=== PATIENT | female | born 1945 | race Caucasian/White ===

== ENCOUNTER 2024-10-28 19:01 | Emergency (ER) | payer MEDICARE, OTHER, SELFPAY ==
[2024-10-28 19:08] VITALS: BP 172/99
--- NOTE | 2024-10-28 19:10 | ED.GENMED ---
History of Present Illness
General
Chief Complaint: Allergic Reaction
Time Seen by Provider: 10/28/24 19:03
History of Present Illness
History of Present Illness:
79-year-old female with history of hypertension presents the emergency department for evaluation of tongue swelling and diffuse urticarial lesions beginning just prior to arrival. She denies any history of anaphylaxis, notes that she had eaten some
nuts just prior to this but had eaten nuts previously without any issues. She denies any dyspnea but does have some degree of dysphagia. Of note she is on ramipril and has been so for many years
Past History
Past History
ED Past Medical History: HTN
ED Past Surgical History: Bowel resection (Sigmoid colon resection)
Social History
Tobacco: Non-smoker
Alcohol: Daily ([place] 2 glasses)
Drug: None
Personal:
Living: with family
Review of Systems
Review of Systems
Allergies reviewed?: Yes
All Other Systems: ROS reviewed and negative except as documented in HPI and ROS
Phy Exam
Physical Exam
Physical Exam:
GEN: Well appearing, NAD, WDWN
HEENT: Moderate swelling periorbital, massive tongue edema, unable to visualize oropharynx, no stridor
Cardiac: Regular rate
Lung: No respiratory distress, no tachypnea, lungs clear to auscultation bilaterally
MSK: No gross deformity or injuries
Skin: Good color, no pallor or jaundice, diffuse urticaria
Neuro: AO x3, moves all extremities freely
Psych: Calm, cooperative
Course
Orders/Labs/Results
Orders:
Orders
10/28/24 19:08
Diphenhydramine [Benadryl] 25 mg IV NOW STA
EPINEPHrine PF [Adrenalin] 0.3 mg IM NOW STA
Famotidine [Pepcid] 20 mg IV NOW STA
MethylPREDNISolone PF [Solu-Medrol Pf] 60 mg IV NOW STA
10/28/24 19:33
EPINEPHrine PF [Adrenalin] 0.3 mg IM NOW STA
Vital Signs
Initial and Last Documented VS:
Initial Vital Signs
Temp Pulse Resp BP Pulse Ox
98.1 F 87 20 172/99 98
10/28/24 19:08 10/28/24 19:08 10/28/24 19:08 10/28/24 19:08 10/28/24 19:08
Last Documented Vital Signs
Temp Pulse Resp BP Pulse Ox
98.1 F 65 16 112/76 99
10/28/24 19:08 10/28/24 22:49 10/28/24 22:49 10/28/24 22:49 10/28/24 22:49
MDM/Problems Addressed
MDM/Problems Addressed:
Patient was treated with epinephrine, antihistamines, and corticosteroids with dramatic improvement in symptoms. No further tongue edema noted at time of discharge. Unclear trigger however will prescribe EpiPen at time of discharge. Did consider
SHREYA inhibitor angioedema however given the urticarial lesions coupled with the rapid improvement with traditional treatment I do not feel this is likely
*Critical Care Note
Total Time (30-74mins, 75-104mins- exclusive of procedures): Not Applicable
ED Attending Note
-
Portions of this chart may have been created with voice recognition software.� Occasional wrong word or��sound alike� substitutions may have occurred due to the inherent limitations of voice recognition software.
Discharge Plan
Departure
Patient Disposition: Home (Routine Discharge)
Date of Disposition: 10/28/24
Time of Disposition: 22:32
Patient with high blood pressure during this ER visit?: No
Discharge Problem:
Anaphylactic reaction
Instructions: Anaphylaxis
Prescriptions:
New
epinephrine 0.3 mg/0.3 mL auto-injector
0.3 mg IM ONCE Qty: 2 0RF
No Action
citalopram 20 MG tablet
30 mg PO DAILY
hydrochlorothiazide 25 MG tablet
25 mg PO DAILY
oxycodone-acetaminophen 5 MG/325 MG tablet
2 tab PO Q4HPRN PRN (Reason: moderate pain) Qty: 10 0RF
gabapentin 100 MG capsule
200 mg PO TID Qty: 180 0RF
ramipril 10 MG capsule
10 mg PO DAILY Qty: 30 0RF
oxycodone [OxyContin] 10 MG tablet,oral only,ext.rel.12 hr
10 mg PO Q12 Qty: 14 0RF
cyclobenzaprine 10 MG tablet
10 mg PO TIDPRN PRN (Reason: Muscle spasm) Qty: 12 0RF
Referrals:
Stan Osei PA [Family Provider] -
Interventions
Interventions:
*Risk Screen - Suicide Last Done: 10/28/24 22:49
*General Assessment Last Done: 10/28/24 19:08
*Neglect/Abuse Screening Last Done: 10/28/24 22:49
*ED- Fall Risk Assessment Last Done: 10/28/24 22:49
*ED COVID-19 Vaccine History Last Done: 10/28/24 22:49
*Nursing Disposition Last Done: 10/28/24 22:49
ED- Cardiac Assessment Last Done: 10/28/24 19:25
ED- Pulmonary Assessment Last Done: 10/28/24 19:25
ED-Skin Assessment Last Done: 10/28/24 19:25
Discharge Date and Time
Discharge Date/Time: 10/28/24 22:51
Print Language: [email or web address]
[2024-10-28] MEDS: ADRENALIN 0.3 MG IM ×2 (19:17→19:35)
[2024-10-28] MEDS: SOLU-MEDROL PF 60 MG IV (19:20)
[2024-10-28] MEDS: BENADRYL 25 MG IV (19:21)
[2024-10-28] MEDS: PEPCID 20 MG IV (19:21)
[2024-10-28 19:25] VITALS: BP 172/99; BMI 25.8
[2024-10-28 19:34] VITALS: BP 188/89
[2024-10-28 20:08] VITALS: BP 165/72
[2024-10-28 20:53] VITALS: BP 175/93
[2024-10-28 22:49] VITALS: BP 112/76
== END 2024-10-28 22:51 | disposition home or self-care (01) ==
LOC: EMR 19:01
PROVIDERS: EMERGENCY PHYSICIAN Emergency Medicine; FAMILY PHYSICIAN Physician Assistant
DX: T78.05XA Anaphylactic reaction due to tree nuts and seeds, initial encounter (principal); X58.XXXA Exposure to other specified factors, initial encounter; I10 Essential (primary) hypertension
CPT/HCPCS: 96374; 96375; 96372; 99284